=== PATIENT | female | born 1945 | race Caucasian/White ===

== ENCOUNTER 2018-08-02 06:57 | Day surgery (SDC) | payer OTHER ==
[~2018-08-02 06:57] MED LIST: ASA81 MG PO; COZAAR100 MG PO; PROTONIX40 MG PO; SIMVASTATIN20 MG PO
== END 2018-08-02 19:00 | disposition home or self-care (01) ==
LOC: CIR.AMB 06:57
DX: S43.302A Subluxation of unspecified parts of left shoulder girdle, initial encounter (principal)